=== PATIENT | female | born 2000 | race Caucasian/White ===

== ENCOUNTER 2024-02-02 09:35 | Emergency (ER) | payer MEDICAID ==
[~2024-02-02] VITALS: Ht 157.5 cm; Wt 54.4 kg
[2024-02-02 09:42] VITALS: BP_SYST 91; PULSE 106; RESP 18; TEMP 98.3; O2SAT 98
[2024-02-02] MEDS ORDERED: PRED50TA PO (10:09)
[2024-02-02] MEDS ORDERED: TRAM50TA2 PO (10:15)
[2024-02-02 10:24] VITALS: BP_SYST 91; PULSE 106; RESP 18; TEMP 98.3; O2SAT 98
== END 2024-02-02 10:23 | disposition home or self-care (01) ==
LOC: SED 09:35
DX: J02.9 Acute pharyngitis, unspecified (principal)
CPT/HCPCS: 99283